=== PATIENT | male | born 1975 | race Caucasian/White ===

== ENCOUNTER 2016-11-30 10:48 | Emergency (ER) | payer SELFPAY ==
[2016-11-30] MEDS ORDERED: Tetan/Diph/Pertus SYR(Tdap)* 0.5 ML SYR(BOOSTRIX) use SYR IM ONE (11:50)
== END 2016-11-30 12:17 | disposition home or self-care (01) ==
LOC: UCCORT 10:48
DX: B35.4 Tinea corporis (principal); L03.90 Cellulitis, unspecified; L73.9 Follicular disorder, unspecified; Z23 Encounter for immunization
CPT/HCPCS: 90715; 96372; 99201; G0463